=== PATIENT | male | born 1970 | race Hispanic/Latino ===

== ENCOUNTER 2016-12-08 11:09 | Emergency (ER) | payer OTHER ==
[~2016-12-08] VITALS: Ht 167.6 cm; Wt 81.6 kg
[2016-12-08] MEDS ORDERED: MYCO250C PO (11:21)
[2016-12-08] MEDS ORDERED: ATOR1TAB21 PO (11:21)
[2016-12-08] MEDS ORDERED: [UNRECOGNIZED DRUG - OTHER] PO (11:21)
[2016-12-08] MEDS ORDERED: OMEP40CA2 PO (11:21)
[2016-12-08] MEDS ORDERED: PRED5TA PO (11:21)
[2016-12-08] MEDS ORDERED: ASPIRIN 81 MG CHEW TABLET PO ONE (11:45)
[2016-12-08 12:22] LABS: BASO % 0.5 % (0.0-1.0); EOS # 0.2 K/mm3 (0.0-0.50); EOS % 2.2 % (0.0-3.0); LARGE UNSTAINED CELL # 0.1 K/mm3 (0.0-0.4); LARGE UNSTAINED CELL % 1.4 % (0.0-4.0); LYMPH # 1.3 K/mm3 (1.5-4.5); LYMPH % 17.1 % (24.0-44.0); MEAN CORPUSCULAR HEMOGLOBIN 31.8 pg (27.0-33.0); MEAN CORPUSCULAR HGB CONC 33.4 g/dl (32.0-36.5); MEAN CORPUSCULAR VOLUME 95.1 fl (80.0-96.0); MONO # 0.2 K/mm3 (0.0-0.8); MONO % 3.2 % (0.0-5.0); NEUTROPHILS # 5.6 K/mm3 (1.8-7.7); NEUTROPHILS % 75.5 % (36.0-66.0); PLATELET COUNT, AUTOMATED 261 k/mm3 (150-450); RED CELL DISTRIBUTION WIDTH 12.6 % (11.5-14.5); WHITE BLOOD COUNT 7.4 K/mm3 (4.0-10.0)
[2016-12-08 13:17] LABS: ANION GAP 7 MEQ/L (8-16); BLOOD UREA NITROGEN 19 MG/DL (7-18); CALCIUM LEVEL 9.9 MG/DL (8.5-10.1); CARBON DIOXIDE LEVEL 25 MEQ/L (21-32); CHLORIDE LEVEL 110 MEQ/L (98-107); CREATININE FOR GFR 1.06 MG/DL (0.70-1.30); GLOMERULAR FILTRATION RATE > 60.0 (>60); GLUCOSE, FASTING 126 MG/DL (70-105); POTASSIUM SERUM 4.4 MEQ/L (3.5-5.1); SODIUM LEVEL 142 MEQ/L (136-145)
--- NOTE | 2016-12-08 13:46 | REP ---
CHEST, PORTABLE: No comparison. Single view of the chest is performed. There is no acute infiltrate or pulmonary edema. The cardiac silhouette appears somewhat magnified. The mediastinal silhouette is unremarkable. IMPRESSION: No evidence of acute infiltrate or pulmonary edema. Signed by Taco Madison MD 12/08/2016 04:51 P
[2016-12-08] MEDS ORDERED: PROTPAK PO (13:49)
[2016-12-08 14:06] VITALS: BP 119/74
--- NOTE | 2016-12-10 08:29 | ECGEPIP ---
Stationary ECG Study [facility] - ED Test Date: 2016-12-08 Pat Name: MAX CLAY Department: Room: - Gender: M Credit Historian: sb : 1970 Requested By: Bhargav Cruz Order Number: [id number] Reading MD: Connie Blake Measurements Intervals Holcomb Rate: 77 P: 52 LA: 129 QRS: 13 QRSD: 85 T: 20 QT: 362 QTc: 411 Interpretive Statements SINUS RHYTHM NONSPECIFIC T-WAVE ABNORMALITY CLINICAL CORRELATION NO PRIOR FOR COMPARISON Electronically Signed On 12-10-2016 8:28:57 EDT by Connie Blake
== END 2016-12-08 14:08 | disposition home or self-care (01) ==
LOC: M ED 12:53
DX: K21.9 Gastro-esophageal reflux disease without esophagitis (principal); I10 Essential (primary) hypertension; R94.31 Abnormal electrocardiogram [ECG] [EKG]; Z94.0 Kidney transplant status; Z79.899 Other long term (current) drug therapy